=== PATIENT | female | born 1955 | race Caucasian/White ===

== ENCOUNTER 2019-08-18 16:03 | Emergency (ER) | payer OTHER, MEDICAID ==
[~2019-08-18] VITALS: Ht 142.2 cm; Wt 35.4 kg
[2019-08-18 16:05] VITALS: BP_SYST 80
[2019-08-18] MEDS ORDERED: NACL 0.9% 1,000 ML IV ONE (16:40)
[2019-08-18] MEDS ORDERED: ONDANSETRON HCL 4 MG/2 ML VIAL IVP ONE (16:45)
[2019-08-18 17:22] LABS: BASOPHILS % (AUTO) 0.1 % (0.0-2.0); EOSINOPHILS % (AUTO) 0.1 % (0.0-4.0); HEMATOCRIT 39.9 % (36-48); HEMOGLOBIN 13.3 g/dL (12.0-16.0); LYMPHOCYTES # (AUTO) 0.9 K/uL (1.0-5.5); LYMPHOCYTES % (AUTO) 10.4 % (20.5-51.5); MEAN CORPUSCULAR HEMOGLOBIN 34 pg (27-31); MEAN CORPUSCULAR HGB CONC 33 % (32-36); MEAN CORPUSCULAR VOLUME 102 fL (79.0-98.0); MONOCYTES # (AUTO) 0.3 K/uL (0.0-1.0); MONOCYTES % (AUTO) 3.2 % (1.7-9.3); NEUTROPHILS # (AUTO) 7.6 K/uL (1.8-7.7); NEUTROPHILS % (AUTO) 86.2 % (40.0-70.0); PLATELET COUNT (AUTO) 149 K/uL (130-430); RED CELL DISTRIBUTION WIDTH 14.5 % (9.0-15.0); WHITE BLOOD COUNT (AUTO) 8.8 K/uL (4.8-10.8)
[2019-08-18 17:28] LABS: ANION GAP 10 (5-15); CALCIUM 8.6 mg/dL (8.4-11.0); CHLORIDE 103 mmol/L (98-107); CREATININE 1.19 mg/dL (0.55-1.30); GLUCOSE 111 mg/dL (70-99); POTASSIUM 3.1 mmol/L (3.5-5.1); SODIUM SERUM 141 mmol/L (136-145); UREA NITROGEN, BLOOD 23 mg/dL (8-21)
[2019-08-18 17:29] LABS: GFR AFRICAN AMERICAN 59 mL/min (>90)
[2019-08-18 17:35] LABS: ALANINE AMINOTRANSFERASE 240 U/L (12-78); ALBUMIN 2.8 g/dL (3.4-4.8); AMYLASE 58 U/L (0-100); ASPARTATE AMINOTRANSFERASE 74 U/L (10-37); LIPASE 60 U/L (73-393); TOTAL BILIRUBIN 0.7 mg/dL (0.0-1.0)
[2019-08-18 17:38] LABS: ALCOHOL, BLOOD < 3 mg/dL (<10)
[2019-08-18] MEDS ORDERED: KCL 20 mEq in 100 mL (PREMIX) 100 ML IV ONE (18:45)
[2019-08-18 23:08] VITALS: BP_SYST 106
== END 2019-08-18 23:16 | disposition home or self-care (01) ==
LOC: SED 16:03
DX: R53.1 Weakness (principal); R74.0 Nonspecific elevation of levels of transaminase and lactic acid dehydrogenase [LDH]; E87.6 Hypokalemia; F03.90 Unspecified dementia, unspecified severity, without behavioral disturbance, psychotic disturbance, mood disturbance, and anxiety
CPT/HCPCS: 36415; 70450; 71045; 80053; 82150; 82550; 83605; 83690; 83880; 84484; 85025; 85610; 85730; 87040; 93005; 96365; 96366; 96375; 99285; G0480; J2405; J3480; G0481; G0482

== ENCOUNTER 2019-09-30 09:27 | Emergency (ER) | payer OTHER, MEDICAID, SELFPAY ==
[~2019-09-30] VITALS: Ht 160 cm; Wt 63.5 kg
[2019-09-30 09:27] VITALS: BP_SYST 158
--- NOTE | 2019-09-30 09:27 | NUR ---
Placed in room 6 . Placed on environmental monitoring specialist, blood pressure machine and pulse oximeter. To gown for exam. Side rails up. Report given to JESSICA Buck.
--- NOTE | 2019-09-30 09:32 | NUR ---
MD [place] AT BEDSIDE ASSESSING PT.
--- NOTE | 2019-09-30 09:35 | NUR ---
IV ACCESS INTO THE LEFT AC WITH 20G IN ONE ATTEMPT. LABS DRAWN AT SAME TIME AND TAKEN TO LAB.
[2019-09-30] MEDS ORDERED: IPRATROPIUM BROM 0.5 MG/2.5 ML VIAL.NEB (ATROVENT) INH SCH (09:45)
[2019-09-30] MEDS ORDERED: ALBUTEROL SULFATE 0.083% 2.5 MG/3 ML VIAL.NEB INH ONE (09:45)
[2019-09-30] MEDS ORDERED: LEVOFLOXACIN 500 MG/D5W 100 ML IV ONE (09:45)
[2019-09-30 10:16] LABS: CALCIUM 8.8 mg/dL (8.4-11.0); CREATININE 1.29 mg/dL (0.55-1.30); POTASSIUM 4.1 mmol/L (3.5-5.1)
[2019-09-30 10:20] LABS: PROTHROMBIN TIME 10.3 SECS (9.5-12.5)
[2019-09-30 10:25] LABS: BASOPHILS % (AUTO) 0.5 % (0.0-2.0); EOSINOPHILS # (AUTO) 0.1 K/uL (0.0-0.4); EOSINOPHILS % (AUTO) 1.7 % (0.0-4.0); HEMATOCRIT 37.9 % (36-48); HEMOGLOBIN 12.5 g/dL (12.0-16.0); LYMPHOCYTES % (AUTO) 16.5 % (20.5-51.5); MEAN CORPUSCULAR HEMOGLOBIN 34 pg (27-31); MEAN CORPUSCULAR HGB CONC 33 % (32-36); MEAN CORPUSCULAR VOLUME 102 fL (79.0-98.0); MONOCYTES # (AUTO) 0.3 K/uL (0.0-1.0); MONOCYTES % (AUTO) 4.2 % (1.7-9.3); NEUTROPHILS # (AUTO) 4.7 K/uL (1.8-7.7); NEUTROPHILS % (AUTO) 77.1 % (40.0-70.0); PLATELET COUNT (AUTO) 178 K/uL (130-430); RED BLOOD CELL COUNT(AUTO) 3.71 MIL/uL (4.2-6.2); RED CELL DISTRIBUTION WIDTH 14.8 % (9.0-15.0); WHITE BLOOD COUNT (AUTO) 6.2 K/uL (4.8-10.8)
[2019-09-30 10:31] LABS: ALBUMIN 2.6 g/dL (3.4-4.8); TOTAL BILIRUBIN 0.8 mg/dL (0.0-1.0)
[2019-09-30 11:38] LABS: BILIRUBIN,URINE NEGATIVE (NEGATIVE); BLOOD, URINE NEGATIVE (NEGATIVE); CLARITY/URINE CLEAR (CLEAR); COLOR,URINE YELLOW (YELLOW); GLUCOSE,URINE NEGATIVE (NEGATIVE); KETONES,URINE NEGATIVE (NEGATIVE); LEUKOCYTE ESTERASE ,URINE NEGATIVE (NEGATIVE); NITRITE, URINE NEGATIVE (NEGATIVE); PROTEIN URINE NEGATIVE (NEGATIVE); UROBILINOGEN,URINE 0.2 (0.2-1.0)
--- NOTE | 2019-09-30 13:20 | NUR ---
Patient given written and verbal discharge instructions and verbalizes understanding. ER MD discussed with patient the results and treatment provided. Patient in stable condition. ID arm band removed. IV catheter removed intact and dressing applied, no active bleeding. . Patient educated on pain management and to follow up with PMD. Pain Scale 0/10 Opportunity for questions provided and answered. Medication side effect fact sheet provided. PT LEAVING VIA BLS TRANSPORT TO [facility].
[2019-09-30 13:26] VITALS: BP_SYST 140
== END 2019-09-30 13:20 | disposition home or self-care (01) ==
LOC: SED 09:27
DX: R05 Cough (principal); R09.81 Nasal congestion; K21.9 Gastro-esophageal reflux disease without esophagitis
CPT/HCPCS: 36415; 71045; 74018; 80053; 81003; 83605; 83880; 84484; 85025; 85610; 86710; 87040; 93005; 94640; 96365; 99285; J1956; J7613; U0002

== ENCOUNTER 2019-10-27 09:36 | Emergency (ER) | payer OTHER, MEDICAID, SELFPAY ==
[~2019-10-27] VITALS: Ht 134.6 cm; Wt 43.1 kg
--- NOTE | 2019-10-27 09:44 | NUR ---
Patient to ER bed 1 to gown for evaluation. Side rails up.
[2019-10-27 09:45] VITALS: BP_SYST 163
--- NOTE | 2019-10-27 09:45 | NUR ---
ER at bedside examining patient.
--- NOTE | 2019-10-27 09:46 | NUR ---
Escobar BURRELL from boarding care for a fall off her wheelchair x today. Facility denies LOC, n/v. Pt presents w/ a hematoma on the forhead. Facility reports patient behaving normal after the fall. Addendum: 10/27/19 at 1009 by [id number] Bump on the forhead W/ laceration. No active bleeding.
[2019-10-27] MEDS ORDERED: OLANZapine IntraMuscular 10 MG VIAL (FOR I.M. INJECTION ONLY) IM ONE ×2 (10:00→11:15)
--- NOTE | 2019-10-27 10:30 | NUR ---
Pt given 5mg of olanzapine IM, half the dose ordered as per . Will continue to monitor.
[2019-10-27 10:36] LABS: BASOPHILS # (AUTO) 0.1 K/uL (0.0-0.2); BASOPHILS % (AUTO) 1.1 % (0.0-2.0); EOSINOPHILS # (AUTO) 0.1 K/uL (0.0-0.4); HEMATOCRIT 38.4 % (36-48); HEMOGLOBIN 12.7 g/dL (12.0-16.0); LYMPHOCYTES # (AUTO) 1.4 K/uL (1.0-5.5); LYMPHOCYTES % (AUTO) 24.1 % (20.5-51.5); MEAN CORPUSCULAR HEMOGLOBIN 33 pg (27-31); MEAN CORPUSCULAR HGB CONC 33 % (32-36); MEAN CORPUSCULAR VOLUME 100 fL (79.0-98.0); MONOCYTES # (AUTO) 0.3 K/uL (0.0-1.0); MONOCYTES % (AUTO) 5.5 % (1.7-9.3); NEUTROPHILS # (AUTO) 3.9 K/uL (1.8-7.7); NEUTROPHILS % (AUTO) 68.3 % (40.0-70.0); PLATELET COUNT (AUTO) 167 K/uL (130-430); RED BLOOD CELL COUNT(AUTO) 3.85 MIL/uL (4.2-6.2); RED CELL DISTRIBUTION WIDTH 14.6 % (9.0-15.0); WHITE BLOOD COUNT (AUTO) 5.7 K/uL (4.8-10.8)
[2019-10-27 10:42] LABS: CALCIUM 8.7 mg/dL (8.4-11.0); CREATININE 1.03 mg/dL (0.55-1.30)
[2019-10-27 10:47] LABS: ALBUMIN 2.7 g/dL (3.4-4.8); TOTAL BILIRUBIN 0.6 mg/dL (0.0-1.0)
--- NOTE | 2019-10-27 12:00 | NUR ---
Boarding facility [facility] notified pt will going back, spoke to Sujit at [phone]. Was told report does not need to be given to anyone.
[2019-10-27 12:37] VITALS: BP_SYST 163
--- NOTE | 2019-10-27 12:37 | NUR ---
Patient given written hand off to ambulance Care to give to boarding facility. Patient in stable condition. ID arm band removed. Boarding facility [facility] notified, spoke with Sujit. Opportunity for facility to ask questions, no questions asked.
== END 2019-10-27 12:37 | disposition home or self-care (01) ==
LOC: SED 09:36
DX: S00.83XA Contusion of other part of head, initial encounter (principal); K21.9 Gastro-esophageal reflux disease without esophagitis; E78.5 Hyperlipidemia, unspecified; X58.XXXA Exposure to other specified factors, initial encounter; Y93.89 Activity, other specified; Y92.89 Other specified places as the place of occurrence of the external cause; Y99.8 Other external cause status
CPT/HCPCS: 36415; 70450; 72125; 80053; 85025; 96372; 99285; J3490

== ENCOUNTER 2020-02-09 16:02 | Emergency (ER) | payer OTHER, MEDICAID ==
[~2020-02-09] VITALS: Ht 142.2 cm; Wt 49.9 kg
[2020-02-09 16:02] VITALS: BP_SYST 133
[2020-02-09] MEDS ORDERED: DIPH-TET-PERTUS Vaccine 0.5 ML VIAL (ADACEL) I.M. ONE (16:15)
[2020-02-09] MEDS ORDERED: GUAI-689 PO (16:19)
[2020-02-09] MEDS ORDERED: ALBMDI INH (16:19)
[2020-02-09] MEDS ORDERED: MELO-89 PO (16:19)
[2020-02-09] MEDS ORDERED: FLUT50BL (16:19)
[2020-02-09] MEDS ORDERED: TEMA30CA5 PO (16:19)
[2020-02-09] MEDS ORDERED: ESOM40CA PO (16:19)
[2020-02-09 18:28] VITALS: BP_SYST 122
== END 2020-02-09 18:32 | disposition home or self-care (01) ==
LOC: SED 16:02
DX: S01.01XA Laceration without foreign body of scalp, initial encounter (principal); R93.0 Abnormal findings on diagnostic imaging of skull and head, not elsewhere classified; W18.39XA Other fall on same level, initial encounter; Y93.89 Activity, other specified; Y92.89 Other specified places as the place of occurrence of the external cause; Y99.8 Other external cause status
CPT/HCPCS: 70450-TC; 72125-TC; 90715; 99285

== ENCOUNTER 2020-03-13 18:15 | Emergency (ER) | payer OTHER, MEDICAID, SELFPAY ==
[~2020-03-13] VITALS: Ht 149.9 cm; Wt 52.2 kg
[~2020-03-13 18:15] MED LIST: ALBMDI INH; ESOM40CA PO; FLUT50BL; GUAI-689 PO; MELO-89 PO; TEMA30CA5 PO
[2020-03-13 18:19] VITALS: BP_SYST 102
--- NOTE | 2020-03-13 18:20 | NUR ---
Patient to ER bed 3 to gown for evaluation. Side rails up.
--- NOTE | 2020-03-13 18:20 | NUR ---
Pt came to ER for hypotension, pt currently 102/59 with NS infusing. Pt resting in [facility], no distress at this time, awaiting MD.
--- NOTE | 2020-03-13 18:25 | NUR ---
ER at bedside examining patient.
--- NOTE | 2020-03-13 19:20 | NUR ---
REPORT RECEIVED FROM JESSICA NEELY FOR CONTINUING CARE
[2020-03-13 20:15] LABS: EOSINOPHILS # (AUTO) 0.1 K/uL (0.0-0.4); MONOCYTES # (AUTO) 0.3 K/uL (0.0-1.0)
[2020-03-13 20:23] LABS: EOSINOPHILS % (AUTO) 1.9 % (0.0-4.0); HEMATOCRIT 38.4 % (36-48); HEMOGLOBIN 12.8 g/dL (12.0-16.0); LYMPHOCYTES # (AUTO) 1.2 K/uL (1.0-5.5); LYMPHOCYTES % (AUTO) 24.4 % (20.5-51.5); MEAN CORPUSCULAR HEMOGLOBIN 34 pg (27-31); MEAN CORPUSCULAR HGB CONC 33 % (32-36); MEAN CORPUSCULAR VOLUME 101 fL (79.0-98.0); MONOCYTES % (AUTO) 5.8 % (1.7-9.3); NEUTROPHILS # (AUTO) 3.2 K/uL (1.8-7.7); NEUTROPHILS % (AUTO) 66.9 % (40.0-70.0); PLATELET COUNT (AUTO) 199 K/uL (130-430); RED CELL DISTRIBUTION WIDTH 13.7 % (9.0-15.0); WHITE BLOOD COUNT (AUTO) 4.8 K/uL (4.8-10.8)
--- NOTE | 2020-03-13 20:27 | NUR ---
COVID SWAB DONE AND SENT TO LAB
[2020-03-13 20:28] LABS: CALCIUM 8.3 mg/dL (8.4-11.0); CREATININE 0.79 mg/dL (0.55-1.30); POTASSIUM 3.8 mmol/L (3.5-5.1)
[2020-03-13 20:34] LABS: ALBUMIN 2.7 g/dL (3.4-4.8); TOTAL BILIRUBIN 0.3 mg/dL (0.0-1.0)
--- NOTE | 2020-03-13 21:00 | NUR ---
URINE COLLECTED- SPECIMEN SENT TO LAB
[2020-03-13 21:22] LABS: BILIRUBIN,URINE NEGATIVE (NEGATIVE); BLOOD, URINE NEGATIVE (NEGATIVE); CLARITY/URINE CLEAR (CLEAR); COLOR,URINE YELLOW (YELLOW); GLUCOSE,URINE NEGATIVE (NEGATIVE); KETONES,URINE NEGATIVE (NEGATIVE); LEUKOCYTE ESTERASE ,URINE NEGATIVE (NEGATIVE); NITRITE, URINE NEGATIVE (NEGATIVE); PH,URINE 5.5 (5.0-8.0); PROTEIN URINE NEGATIVE (NEGATIVE); UROBILINOGEN,URINE 0.2 (0.2-1.0)
[2020-03-13 21:43] VITALS: BP_SYST 135
== END 2020-03-13 21:43 | disposition home or self-care (01) ==
LOC: SED 18:15
DX: I10 Essential (primary) hypertension (principal); E78.5 Hyperlipidemia, unspecified; K21.9 Gastro-esophageal reflux disease without esophagitis; Z87.01 Personal history of pneumonia (recurrent); Z79.899 Other long term (current) drug therapy; Z20.828 Contact with and (suspected) exposure to other viral communicable diseases
CPT/HCPCS: 36415; 36600; 71045; 80053; 81003; 82803-TC; 83605; 85025; 87040-TC; 87086; 99284